=== PATIENT | female | born 1935 | race African-American/Black ===

== ENCOUNTER 2020-03-23 15:27 | Inpatient (IN) | payer MEDICARE ==
[~2020-03-23] VITALS: Ht 162.6 cm; Wt 68.0 kg
[2020-03-23] MEDS ORDERED: ASPIRIN 325MG TABLET PO ONE (15:45)
[2020-03-23 16:16] LABS: HEMATOCRIT. 41.7 % (36.0-48.0); HEMOGLOBIN. 13.9 g/dL (12.0-16.0); MEAN CORPUSCULAR HEMOGLOBIN 31.6 pg (28.0-32.0); MEAN PLATELET VOLUME 7.6 fl (7.4-10.4); PLATELET 209 x1000/uL (130-400); RED BLOOD CELL COUNT 4.39 mill/uL (4.2-5.4); RED CELL DISTRIBUTION WIDTH 14.9 % (11.6-14.6)
[2020-03-23 16:17] LABS: CHLORIDE 100 mEq/L (98-107)
[2020-03-23 16:21] LABS: INR 1.2; PROTHROMBIN TIME 12.4 sec (9.6-11.0)
[2020-03-23 16:42] LABS: PLATELET ESTIMATE NORMAL
[2020-03-23 17:42] LABS: CLARITY URINE CLOUDY (CLEAR); COLOR URINE YELLOW (YELLOW); KETONES URINE 1+ (NEGATIVE); LEUKOCYTE ESTERASE URINE 2+ (NEGATIVE); NITRITE URINE NEGATIVE (NEGATIVE); OCCULT BLOOD URINE 3+ (NEGATIVE); PROTEIN URINE 3+ (NEGATIVE); SPECIFIC GRAVITY URINE 1.021 (1.005-1.030)
[2020-03-23 17:48] LABS: BG BASE EXCESS 3.1 mmol/L (-2.0-2.0); BG CARBOXYHEMOGLOBIN 0.3 % (0.5-1.5); BG DEOXYHEMOGLOBIN 3.2 % (0.0-5.0); BG FRACTION INSPIRED OXYGEN 21; BG HCO3 ACT 25.6 mmol/L (22.0-26.0); BG METHEMOGLOBIN 0.2 % (0.0-1.5); BG OXYGEN SATURATION 96.8 % (92.0-98.5); BG OXYHEMOGLOBIN 96.3 % (94.0-97.0); BG PCO2 32.6 mmHg (35.0-45.0); BG PH 7.513 (7.350-7.450); BG PO2 77.7 mmHg (75.0-100.0); BG SAMPLE SITE RIGHT RADIAL; BG TOTAL HEMOGLOBIN 13.4 g/dL (12.0-18.0); BG VENT MODE ROOM AIR
[2020-03-23] MEDS ORDERED: DOXYCYCLINE HYCLATE 100MG CAPSULE PO SCH (18:00)
[2020-03-23] MEDS ORDERED: CEFTRIAXONE 1 G PREMIX 50 ML IV SCH (18:00)
[2020-03-23] MEDS ORDERED: ACETAMINOPHEN 325MG TABLET PO ONE (19:00)
[2020-03-23] MEDS ORDERED: GUAIFENESIN 200MG/10ML SUGAR FREE UDC PO PRN (23:00)
[2020-03-23] MEDS ORDERED: ACETAMINOPHEN 325MG TABLET PO PRN (23:00)
[2020-03-23] MEDS ORDERED: ONDANSETRON HCL 4MG/2ML INJ IV PRN (23:00)
[2020-03-23] MEDS ORDERED: HYDROCODONE/ACETAMINOPHEN 5/325MG TABLET PO PRN (23:00)
[2020-03-23] MEDS ORDERED: IPRATROPIUM/ALBUTEROL 0.5-3(2.5)MG/3ML NEB NEB PRN (23:00)
[2020-03-23] MEDS ORDERED: DOCUSATE SODIUM 100MG CAPSULE PO PRN (23:00)
[2020-03-24] VITALS (8 sets, daily range): BP systolic 100–122; BP diastolic 42–70
[2020-03-24] MEDS ORDERED: ASPI-1158 PO (00:09)
[2020-03-24] MEDS ORDERED: [UNRECOGNIZED DRUG - OTHER] (00:09)
[2020-03-24] MEDS ORDERED: ATEN50TA MT (00:09)
[2020-03-24] MEDS ORDERED: OLME40TA11 PO (00:09)
[2020-03-24] MEDS ORDERED: FLUT1DIS3 INH (00:09)
[2020-03-24] MEDS ORDERED: BUSP5TAB3 MT (00:11)
[2020-03-24] MEDS ORDERED: EZET10TA13 MT (00:23)
[2020-03-24] MEDS ORDERED: SULF-288 MT (00:23)
[2020-03-24] MEDS ORDERED: PRED5TAB MT (00:23)
[2020-03-24] MEDS ORDERED: MYCO500T MT (00:23)
[2020-03-24] MEDS ORDERED: CILO100T MT (00:23)
[2020-03-24] MEDS ORDERED: POTA10TA11 MT (00:23)
[2020-03-24] MEDS ORDERED: TIOT18CA3 INH (00:23)
[2020-03-24] MEDS ORDERED: KRIL1CAP22 MT (00:23)
[2020-03-24] MEDS ORDERED: FURO20TA4 MT (00:23)
[2020-03-24] MEDS ORDERED: WELC MT (00:23)
[2020-03-24] MEDS: LEVOFLOXACIN 500MG PREMIX 100 ML IV SCH (01:14)
[2020-03-24 06:38] LABS: HEMATOCRIT. 40.2 % (36.0-48.0); HEMOGLOBIN. 13.6 g/dL (12.0-16.0); MEAN CORPUSCULAR HEMOGLOBIN 31.7 pg (28.0-32.0); MEAN PLATELET VOLUME 8.2 fl (7.4-10.4); PLATELET 172 x1000/uL (130-400); RED BLOOD CELL COUNT 4.28 mill/uL (4.2-5.4); RED CELL DISTRIBUTION WIDTH 15.1 % (11.6-14.6)
[2020-03-24 06:50] LABS: CHLORIDE 103 mEq/L (98-107)
[2020-03-24 07:02] LABS: LDL CHOLESTEROL 189 mg/dL (5-100)
[2020-03-24 07:03] LABS: HDL CHOLESTEROL 62 mg/dL (40-59)
[2020-03-24] MEDS: AMLODIPINE 10MG TABLET PO SCH (09:00)
[2020-03-24] MEDS: PREDNISONE 20MG TABLET PO SCH (09:53)
[2020-03-24] MEDS: EZETIMIBE 10MG TABLET PO SCH (09:53)
[2020-03-24] MEDS: ENOXAPARIN 40MG/0.4ML SYR SUBCUT SCH (09:54)
[2020-03-24 09:57] LABS: PLATELET ESTIMATE NORMAL
[2020-03-24 12:42] LABS: T4 FREE 1.25 ng/dL (0.76-1.46)
[2020-03-24 15:54] LABS: CREATINE KINASE 146 IU/L (26-192)
[2020-03-24 15:56] LABS: CREATINE KINASE MB FRACTION < 1.0 ng/mL (0.5-3.6)
[2020-03-24] MEDS: CEFEPIME 1,000 MG in DEXTROSE 5% WATER 50 ML IV SCH (17:10)
[2020-03-24] MEDS: BUSPIRONE HCL 5MG TABLET PO SCH (17:10)
[2020-03-24] MEDS: MYCOPHENOLATE MOFETIL 500MG TABLET PO SCH (17:11)
[2020-03-24] MEDS ORDERED: SODIUM CHLORIDE 10% FOR INH 15ML VIAL NEB INH NR (18:00)
[2020-03-25] MEDS: LEVOFLOXACIN 500MG PREMIX 100 ML IV SCH (00:11)
[2020-03-25 00:59] LABS: CREATINE KINASE 176 IU/L (26-192)
[2020-03-25 01:00] LABS: CREATINE KINASE MB FRACTION < 1.0 ng/mL (0.5-3.6)
[2020-03-25 04:00] VITALS: BP 111/53
[2020-03-25] MEDS: CEFEPIME 1,000 MG in DEXTROSE 5% WATER 50 ML IV SCH ×2 (05:19→17:01)
[2020-03-25 07:40] LABS: CREATINE KINASE 175 IU/L (26-192); CREATINE KINASE MB FRACTION < 1.0 ng/mL (0.5-3.6)
[2020-03-25 08:00] VITALS: BP 121/47
[2020-03-25] MEDS: EZETIMIBE 10MG TABLET PO SCH (09:36)
[2020-03-25] MEDS: ENOXAPARIN 40MG/0.4ML SYR SUBCUT SCH (09:36)
[2020-03-25] MEDS: ASPIRIN 81MG EC TABLET PO SCH (09:36)
[2020-03-25] MEDS: PREDNISONE 20MG TABLET PO SCH (09:37)
[2020-03-25] MEDS: MYCOPHENOLATE MOFETIL 500MG TABLET PO SCH ×2 (09:37→17:00)
[2020-03-25] MEDS: AMLODIPINE 10MG TABLET PO SCH (09:38)
[2020-03-25] MEDS: BUSPIRONE HCL 5MG TABLET PO SCH ×2 (09:38→16:59)
[2020-03-25] MEDS: FUROSEMIDE 20MG TABLET PO SCH (09:39)
[2020-03-25] MEDS: ATENOLOL 50 MG TABLET PO SCH (09:39)
[2020-03-25 12:00] VITALS: BP 111/50
[2020-03-25 16:00] VITALS: BP 107/51
[2020-03-25] MEDS: COLESEVELAM HCL 625MG TABLET PO SCH ×2 (16:59→17:11)
[2020-03-25 20:00] VITALS: BP 97/39
[2020-03-26] VITALS: BP 96/34
[2020-03-26] MEDS: LEVOFLOXACIN 500MG PREMIX 100 ML IV SCH (00:55)
[2020-03-26 04:00] VITALS: BP 111/47
[2020-03-26] MEDS: CEFEPIME 1,000 MG in DEXTROSE 5% WATER 50 ML IV SCH (05:38)
[2020-03-26 08:00] VITALS: BP 117/41
[2020-03-26] MEDS: MYCOPHENOLATE MOFETIL 500MG TABLET PO SCH (08:35)
[2020-03-26] MEDS: PREDNISONE 20MG TABLET PO SCH (08:36)
[2020-03-26] MEDS: COLESEVELAM HCL 625MG TABLET PO SCH (08:36)
[2020-03-26] MEDS: FUROSEMIDE 20MG TABLET PO SCH (08:36)
[2020-03-26] MEDS: ATENOLOL 50 MG TABLET PO SCH (08:36)
[2020-03-26] MEDS: AMLODIPINE 10MG TABLET PO SCH (08:36)
[2020-03-26] MEDS: BUSPIRONE HCL 5MG TABLET PO SCH (08:36)
[2020-03-26] MEDS: ASPIRIN 81MG EC TABLET PO SCH (08:36)
[2020-03-26] MEDS: ENOXAPARIN 40MG/0.4ML SYR SUBCUT SCH (08:45)
[2020-03-26] MEDS: EZETIMIBE 10MG TABLET PO SCH (08:45)
[2020-03-26 12:00] VITALS: BP 106/60
[2020-03-26] MEDS ORDERED: LOSARTAN POTASSIUM 25 MG TABLET PO SCH (13:30)
[2020-03-26] MEDS ORDERED: CARVEDILOL 3.125 MG TABLET PO SCH (21:00)
== END 2020-03-26 13:22 | disposition home health service (06) | DRG 871 ==
LOC: ER 15:27 → 8WST 19:47 → EDBEDREQTM 19:49 → EDBEDREQ 19:49 → ENRESERV 21:10
PROVIDERS: ADMIT Hospitalist; ATTEND Hospitalist
DX: A41.59 Other Gram-negative sepsis (principal); J18.9 Pneumonia, unspecified organism; J96.00 Acute respiratory failure, unspecified whether with hypoxia or hypercapnia; J44.0 Chronic obstructive pulmonary disease with (acute) lower respiratory infection; N39.0 Urinary tract infection, site not specified; E87.1 Hypo-osmolality and hyponatremia; J44.1 Chronic obstructive pulmonary disease with (acute) exacerbation; I42.9 Cardiomyopathy, unspecified; E78.00 Pure hypercholesterolemia, unspecified; E78.5 Hyperlipidemia, unspecified; J84.10 Pulmonary fibrosis, unspecified; B96.4 Proteus (mirabilis) (morganii) as the cause of diseases classified elsewhere; I11.0 Hypertensive heart disease with heart failure; I50.9 Heart failure, unspecified; Z82.49 Family history of ischemic heart disease and other diseases of the circulatory system; Z86.73 Personal history of transient ischemic attack (TIA), and cerebral infarction without residual deficits; Z87.891 Personal history of nicotine dependence; Z79.899 Other long term (current) drug therapy; Z79.82 Long term (current) use of aspirin; Z99.81 Dependence on supplemental oxygen; Z91.011 Allergy to milk products
CPT/HCPCS: 36415; 36600; 71045; 80053; 80061; 81003; 82375; 82550; 82553; 82805; 83036; 83605; 83880; 84145; 84439; 84443; 84484; 85025; 85379; 87070; 87077; 87186; 93005; 93306; 93970; 99291; C1893; J0692; J0696; J1650; J1956; J7040; J7060; J7131; J7512; J7517